=== PATIENT | male | born 1970 | race Caucasian/White ===

== ENCOUNTER → 2017-10-17 07:08 | Outpatient (CLI) | payer MEDICAID, SELFPAY ==
--- NOTE | 2017-10-17 07:12 | CT_ITS ---
STUDY: CT MAXILLOFACIAL SINUSES REASON FOR EXAM: Male, 47 years old. Sinusitis RADIATION DOSAGE (If Supplied By Facility): CTDIvol = ( 33.06 ) mGy, DLP = ( 871.04 ) mGycm TECHNIQUE: The patient was scanned in a multi detector CT scanner. High resolution axial imaging was performed without the administration of intravenous contrast material. Sagittal and coronal images were reconstructed. Individualized dose optimization techniques were used for this CT. COMPARISON: None. FINDINGS: FRONTAL SINUSES: Normal aeration, without mucosal inflammatory disease. ETHMOIDAL SINUSES: Normal aeration, without mucosal inflammatory disease. MAXILLARY SINUSES: Normal aeration, without mucosal inflammatory disease. SPHENOIDAL SINUSES: Normal aeration, without mucosal inflammatory disease. The visualized osseous structures are normal. The visualized bilateral orbital contents are normal. CT/Sinus/Facial Bone IMPRESSION: Normal CT examination of the maxillofacial sinuses. Electronically Signed: Jaxson Marie, at 18:38 EDT Tel , Service support ,
== END ==
PROVIDERS: Family Provider Family Medicine; PCP Family Medicine; Visit Provider Otolaryngology
DX: J32.9 Chronic sinusitis, unspecified (principal)
CPT/HCPCS: 70486

== ENCOUNTER 2018-12-29 14:03 | Emergency (ER) | payer MEDICAID, SELFPAY ==
[2018-12-29 14:05] VITALS: BP 156/94; PULSE 96; RESP 18; TEMP 36.2; O2SAT 96; BMI 36.9
--- NOTE | 2018-12-29 14:49 | EKG12_ITS ---
Test Reason : CP Blood Pressure : / mmHG Vent. Rate : 085 BPM Atrial Rate : 085 BPM P-R Int : 160 ms QRS Dur : 100 ms QT Int : 370 ms P-R-T Axes : 057 -61 065 degrees QTc Int : 440 ms Normal sinus rhythm Incomplete right bundle branch block Left anterior fascicular block Abnormal ECG Confirmed by WADE LYLE, MARY ([id number]), map editor NICHOL CARPENTER ([id number]) on 01/03/2019 10:20:11 AM Referred By: Confirmed By:MARY OLVERA MD
--- NOTE | 2018-12-29 14:49 | CT_ITS ---
STUDY: CT BRAIN WITHOUT CONTRAST REASON FOR EXAM: Male, 48 years old. Blurred vision RADIATION DOSAGE (If Supplied By Facility): CTDIvol = ( 44.99 ) mGy, DLP = ( 829.85 ) mGycm TECHNIQUE: Transaxial CT imaging of the brain was performed without administration of intravenous contrast material. Individualized dose optimization techniques were used for this CT. COMPARISON: No relevant priors. FINDINGS: No evidence for shift of midline structures, mass effect or compression of ventricles noted. No acute intra-articular extra-axial hemorrhage is seen. No abnormal intra-axial fluid collections identified. The basal cisterns are patent. No discrete mass in the posterior fossa. Mild mucosal thickening of the ethmoid air cells. Chronic fracture deformity of the left orbital floor seen. IMPRESSION: No evidence for acute intracranial hemorrhage, mass effect or acute large territory infarcts. Chronic fracture deformity of the left orbital floor Electronically Signed: Octavio Rodas, at 16:42 EDT Tel , Service support , CT/Brain/Head without Contrast
[2018-12-29 14:55] LABS: Absolute Lymphocyte Count 2.15 X10^3/uL (0.83-4.51); Absolute Neutrophil Count 3.7 X10^3/uL (2.0-7.7); Basophil# 0.04 X10^3/uL; Basophil% 0.6 % (0-1); Eosinophil# 0.13 X10^3/uL; Eosinophils% 1.9 % (0-5); Hematocrit 49.8 % (40-54); Hemoglobin 16.8 g/dL (13.0-16.5); Lymphocyte # 2.15 X10^3/ul (4.0); Lymphocyte % 31.6 % (19-41); Mean Corp Hgb Conc 33.7 g/dL (32-36); Mean Corpuscular Hgb 30.1 pg (27.0-32.0); Mean Corpuscular Volume 89.2 fL (80-94); Mean Platelet Vol. 9.5 fl (6.2-12.0); Monocyte# 0.73 X10^3/uL; Monocyte% 10.7 % (0-10); NRBC Flagged by Analyzer 0 % (0-5); Neutrophil # 3.72 X10^3/uL (2.7-7.7); Neutrophil % 54.6 % (47-70); Platelet Count 243 K/mm3 (150-450); RBC Distribution Width CV 12.5 % (11.6-14.6); RBC Distribution Width SD 40.9 fl (35.1-43.9); Red Blood Count 5.58 M/mm3 (4.6-6.2); White Blood Count 6.8 K/mm3 (4.4-11.0)
[2018-12-29] MEDS: 0.9% Normal Saline 1,000 ML 999 ML IV (15:02)
[2018-12-29] MEDS: Tetracaine 0.5% Ophthalmic Bottle 1 DRP EACH EYE (15:02)
[2018-12-29 15:09] VITALS: BP 133/99; PULSE 73; RESP 14; O2SAT 97
[2018-12-29 15:17] LABS: Anion Gap 7 (5-15); BUN 19 mg/dL (7-18); BUN/Creat Ratio 15.2 RATIO (10-20); Calcium,Total 8.7 mg/dL (8.5-10.1); Chloride 109 mmol/L (98-107); Creatinine, Serum 1.25 mg/dL (0.70-1.30); EST Glomerular Filtration Rate 65 mL/min (>60); Est Glom Filt Rate - Afr Amer 79 mL/min (>60); Estimated Creatinine Clearance 71.49 ml/min; Glucose 105 mg/dL (74-106); Potassium 3.7 mmol/L (3.5-5.1); Sodium Level 142 mmol/L (136-145)
--- NOTE | 2018-12-29 15:46 | ED.VISSUMM ---
- ER Visit Summary Date of Service: 12/29/18 Chief Complaint: High blood pressure History of Present Illness: The patient is a 48 M patient presents for high blood pressure. He said his outpatient blood pressure was 170/91. He does not have a history of high blood pressure or take any medications now or in the past for his blood pressure. He is concerned that his pressure is high and causing blurry vision bilaterally, worse on the left side. His blurry vision started gradually last night around dinnertime. It is worse on the left in all elena. He denies any visual cuts. Denies any speech changes, facial droop, or focal numbness or weakness. Denies any headache. He denies any trauma to the eye. He does not wear contact lenses. He has not seen an eye doctor for very long time. He does report some left eye watering and pain in the left eye. Reports redness, worse on the left, but denies any other associated symptoms. Physical Examination: Afebrile and vital signs unremarkable. Blood pressure 156/94. HEENT exam is unremarkable. Extraocular structures are normal. No discharge or watering of his eyes. Extraocular motion normal. Pupils normal, reactive, consensual. Patient has bilateral conjunctival and scleral injection, worse on the left. Funduscopic exam is limited, but from what I can evaluate, the exam is unremarkable. No discharge or foreign bodies. Neck is supple with no lymphadenopathy. Good range of motion. Heart regular. Lungs clear. Cranial nerves grossly intact. Normal strength and sensation. Normal cerebellar testing. Test Results: CBC, BMP, coags, troponin unremarkable. EKG showed sinus rhythm at a rate of 85 with incomplete right bundle branch block pattern and left anterior fascicular block pattern. CT brain is pending. Emergency Department Course and Treatment: Patient's visual acuity was done by nursing. Right eye was 20/40, left eye was 20/100, both eyes 20/50. Intraocular pressure in the left eye was 26 and in the right eye it was 22. Patient's pain and watering improved with tetracaine instillation. Repeat blood pressure was 134/90. I do not believe his blood pressure is causing his symptoms. His laboratory studies are also fairly unremarkable. Patient is not having any stroke symptoms. CT is pending. Oncoming doctor will check the results of the CT. Treat accordingly. Patient was treated with erythromycin to cover for conjunctivitis. Patient was discussed with Dr. Baltazar. He advised that the patient can follow-up with him in the office tomorrow. Patient should return for any new or worsening issues. Follow-up with primary care for blood pressure checks. CT showed nothing acute. Nothing to explain his symptoms. Continue erythromycin 4 times a day. Follow-up with Dr. Baltazar tomorrow. Call in the morning. Return right away for signs of stroke or new or worsening symptoms. Treatment Plan: As above Disposition: Discharge Impression: 1. Left eye pain This note was generated with [employer] software. It may contain incorrect words, spelling, and punctuation that were not noted in review of the chart prior to signing ED Disposition - Plan for ED Patient: Instructions: Blurred Vision Referrals: Robert Pringle MD [Primary Care Provider] - 1 Week Willie Baltazar MD [STAFF PHYSICIAN] - 12/30/18 8:00 am Additional Instructions: Call Dr. Baltazar tomorrow AM for an appointment.
[2018-12-29 16:13] VITALS: BP 150/103; PULSE 76; RESP 10; O2SAT 98
--- NOTE | 2018-12-29 16:34 | ED.DEP ---
ED Disposition - Plan for ED Patient: Instructions: Blurred Vision Referrals: Robert Pringle MD [Primary Care Provider] - 1 Week Willie Baltazar MD [STAFF PHYSICIAN] - 12/30/18 8:00 am Additional Instructions: Call Dr. Baltazar tomorrow AM for an appointment.
[2018-12-29] MEDS: Erythromycin Base 1 OPTH.TUBE 1 APPLIC LEFT EYE (16:50)
[2018-12-29 17:12] VITALS: BP 139/97; PULSE 70; RESP 15; O2SAT 97
== END 2018-12-29 17:13 | disposition home or self-care (01) ==
LOC: ED 14:52
PROVIDERS: Emergency Provider Emergency Medicine; Family Provider Family Medicine; PCP Family Medicine
DX: H57.12 Ocular pain, left eye (principal); H53.8 Other visual disturbances; I45.2 Bifascicular block; M25.512 Pain in left shoulder; J45.909 Unspecified asthma, uncomplicated
CPT/HCPCS: 70450; 80048; 84484; 85025; 85610; 85730; 93005; 96360; 99285; J7030; A4216

== ENCOUNTER 2019-05-13 10:04 | Emergency (ER) | payer MEDICAID, SELFPAY ==
[2019-05-13 10:05] VITALS: BP 159/87; PULSE 82; RESP 16; TEMP 36.6; O2SAT 95; BMI 36.9
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
[2019-05-13] MEDS: HYDROcodone Bitartrate/Apap 5/325 Tablet PO (10:43)
[2019-05-13] MEDS: Naproxen 250 MG Tablet 500 MG PO (10:43)
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
[2019-05-13 12:02] LABS: Bacteria 0 SEEN /hpf (None Seen); Mucous, Urine 0 SEEN /hpf (<or=2+); White Blood Cells 0 SEEN /hpf (0-5)
[2019-05-13 12:10] LABS: Color, Urine Yellow (Yellow); Glucose, Dipstick Normal (Normal); Ketone-Dipstick Negative (Negative); Leukocyte Esterase-Dipstick Negative /ul (Negative); Nitrite-Dipstick Negative (Negative); Occult Blood-Urine 10 /ul (Negative); Protein-Dipstick Negative (Negative); Urine Bilirubin Dipstick Negative (Negative); Urine Clarity Sl. Cloudy (Clear); Urine Urobilinogen 1 mg/dl (Normal)
[2019-05-13] MEDS: Morphine 4 MG/ML Syringe IV (12:12)
[2019-05-13 12:34] LABS: Red Blood Cells-Urine 0-5 SEEN /hpf (0-5); Squamous Epithelial Cells - UA 0-5 SEEN /hpf (0-5)
== END 2019-05-13 12:55 | disposition home or self-care (01) ==
PROVIDERS: Emergency Provider Emergency Medicine; PCP Family Medicine
DX: S20.212A Contusion of left front wall of thorax, initial encounter (principal); S40.012A Contusion of left shoulder, initial encounter; S30.1XXA Contusion of abdominal wall, initial encounter; E66.9 Obesity, unspecified; V53.5XXA Driver of pick-up truck or van injured in collision with car, pick-up truck or van in traffic accident, initial encounter; Y93.9 Activity, unspecified; Y92.9 Unspecified place or not applicable; J45.909 Unspecified asthma, uncomplicated; K21.9 Gastro-esophageal reflux disease without esophagitis
CPT/HCPCS: 71046; 81001; 96374; 99283; A4216

== ENCOUNTER → 2022-08-25 | Outpatient (CLI) | payer MEDICAID, SELFPAY | END | disposition home or self-care (01) | LOC: LABSPEC 12:00 | PROVIDERS: PCP Family Medicine; Referring Provider Physician Assistant Surgical; Visit Provider Physician Assistant Surgical | DX: J02.9 Acute pharyngitis, unspecified (principal) | CPT/HCPCS: 87070 ==

== ENCOUNTER 2022-09-02 13:25 | Emergency (ER) | payer MEDICAID, SELFPAY ==
[2022-09-02 13:26] VITALS: BP 154/99; PULSE 85; RESP 18; TEMP 35.6; O2SAT 95; BMI 39.7
--- NOTE | 2022-09-02 13:46 | RAD_ITS ---
INDICATION: injury/poss FB -- thumb EXAMINATION/TECHNIQUE: X-RAY - LEFT HAND XR Fingers Min 2 Views 3 VIEWS COMPARISON: FINDINGS: SOFT TISSUES: No soft tissue swelling or gas. Posterior to the proximal shaft of the proximal phalanx there is a 2 mm density suggestive of foreign body. BONES/JOINTS: No acute fracture or subluxation.. Normal alignment. Preservation of the joint space.. No sclerotic or destructive changes observed. RAD/Finger(s) Min 2 Views IMPRESSION: 2 mm density in soft tissues suggestive of foreign body. Electronically Signed: Robert Villalobos MD, CHELO at 14:25 EDT ,
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
[2022-09-02] MEDS: traMADol 50 MG Tablet PO (15:33)
[2022-09-02] MEDS: Lidocaine 1% (20 ml mdv) 20 ML Vial 5 ML INFILT (15:34)
[2022-09-02 16:22] VITALS: BP 148/87; PULSE 81; RESP 18; O2SAT 99
== END 2022-09-02 16:24 | disposition home or self-care (01) ==
PROVIDERS: Emergency Provider Emergency Medicine; PCP Family Medicine; Visit Provider Emergency Medicine
DX: S61.012A Laceration without foreign body of left thumb without damage to nail, initial encounter (principal); I10 Essential (primary) hypertension; Z79.899 Other long term (current) drug therapy; S30.811A Abrasion of abdominal wall, initial encounter; W29.8XXA Contact with other powered hand tools and household machinery, initial encounter; Y93.89 Activity, other specified
CPT/HCPCS: 12002; 73140; 99284